=== PATIENT | female | born 1985 | race Caucasian/White ===

== ENCOUNTER → 2016-04-13 | Outpatient (CLI) | payer OTHER ==
[~2016-04-13] MED LIST: ALEV220C2 PO; DURAGESIC; PAME25CA PO; TYLE325T5 PO; percocet
[2016-04-13 20:39] LABS: BASO % 0.3 % (0.0-1.0); EOS # 0.4 K/mm3 (0.0-0.50); EOS % 4.9 % (0.0-3.0); LARGE UNSTAINED CELL # 0.1 K/mm3 (0.0-0.4); LARGE UNSTAINED CELL % 1.3 % (0.0-4.0); LYMPH # 1.5 K/mm3 (1.5-6.5); LYMPH % 19.5 % (24.0-44.0); MEAN CORPUSCULAR HEMOGLOBIN 32.1 pg (27.0-33.0); MEAN CORPUSCULAR HGB CONC 34.4 g/dl (32.0-36.5); MEAN CORPUSCULAR VOLUME 93.1 fl (80.0-96.0); MONO # 0.4 K/mm3 (0.0-0.8); MONO % 5.1 % (0.0-5.0); NEUTROPHILS # 5.4 K/mm3 (1.8-7.7); NEUTROPHILS % 68.8 % (36.0-66.0); PLATELET COUNT, AUTOMATED 220 k/mm3 (150-450); RED CELL DISTRIBUTION WIDTH 11.9 % (11.5-14.5); WHITE BLOOD COUNT 7.8 K/mm3 (4.0-10.0)
[2016-04-16 11:12] LABS: HBsAg Prenatal NEGATIVE (NEGATIVE)
[2016-04-16 12:51] LABS: CONTROL LINE INT CTR LINE PRESENT; HIV SCRN NEGATIVE (NEGATIVE); HIV SCRN1 NEGATIVE (NEGATIVE)
== END ==
LOC: M LRY 15:51
PROVIDERS: ATTEND Obstetrics & Gynecology
DX: Z34.81 Encounter for supervision of other normal pregnancy, first trimester (principal)

== ENCOUNTER → 2016-04-13 | Outpatient (REF) | payer OTHER | LOC: CANPREREF → M SFHCCLAY 14:55 | PROVIDERS: ATTEND Nurse Practitioner | DX: Z32.00 Encounter for pregnancy test, result unknown (principal) ==

== ENCOUNTER → 2016-05-28 | Outpatient (CLI) | payer OTHER ==
--- NOTE | 2016-05-29 10:11 | REP ---
OB ULTRASOUND: Real-time sonographic evaluation of the gravid uterus performed. There is a single living intrauterine gestation with an estimated gestational age of 18 weeks 3 days based on LMP with EDC 10/26/2016. Today's measurements indicate appropriate growth. BPD 44 mm 19 weeks 2 days, 75th percentile HC 168 mm 19 weeks 3 days, 82 percentile AC 136 mm 19 weeks 0 days, 63rd percentile FL 27 mm = 18 weeks 1 day, 45th percentile HC/AC ratio 1.24 within normal range. Estimated weight 254 grams, 59th percentile. Cervix closed and measures 3.5 cm in length. heart rate 139 beats per minute. SEEN/GROSSLY UNREMARKABLE Lateral ventricles Yes Posterior fossa Yes Upper lip Yes Four-chamber heart Yes LVOT Yes RVOT Yes Stomach Yes Cord insertion Yes Three vessel cord Yes Kidneys Yes Bladder Yes Spine Yes position vertex. Placenta anterior and grade 0 with no previa or abruption. Amniotic fluid within normal limits.
== END ==
LOC: M WHC 14:58
PROVIDERS: ATTEND Obstetrics & Gynecology
DX: Z34.82 Encounter for supervision of other normal pregnancy, second trimester (principal)

== ENCOUNTER → 2016-07-29 | Outpatient (CLI) | payer OTHER, MEDICAID ==
[2016-07-29 18:44] LABS: MEAN CORPUSCULAR HEMOGLOBIN 32.6 pg (27.0-33.0); MEAN CORPUSCULAR HGB CONC 33.1 g/dl (32.0-36.5); MEAN CORPUSCULAR VOLUME 98.3 fl (80.0-96.0); PLATELET COUNT, AUTOMATED 213 k/mm3 (150-450); RED CELL DISTRIBUTION WIDTH 13.2 % (11.5-14.5); WHITE BLOOD COUNT 13.5 K/mm3 (4.0-10.0)
[2016-07-29 21:01] LABS: BANDS 2 % (< 11); EOSINOPHILS 1 % (0-5)
== END ==
LOC: M WUC 14:28
PROVIDERS: ATTEND Advanced Practice Midwife
DX: Z34.83 Encounter for supervision of other normal pregnancy, third trimester (principal)
CPT/HCPCS: 36415; 82950; 85025; 86850; 86900; 86901; J2790

== ENCOUNTER → 2016-10-05 | Outpatient (REF) | payer OTHER ==
[~2016-10-05] MED LIST changes: +PRENTAB9 PO
== END ==
LOC: M LAB REF 17:24
PROVIDERS: ATTEND Advanced Practice Midwife
DX: Z34.83 Encounter for supervision of other normal pregnancy, third trimester (principal)

== ENCOUNTER 2016-10-09 05:44 | Inpatient (IN) | payer OTHER ==
[2016-10-09] VITALS (13 sets, daily range): BP systolic 104–135; BP diastolic 55–94
[~2016-10-09] VITALS: Ht 177.8 cm; Wt 85.0 kg
[~2016-10-09 05:44] MED LIST changes: -PRENTAB9 PO
[2016-10-09] MEDS ORDERED: LR 1,000 ML IV SCH (06:22)
[2016-10-09] MEDS ORDERED: OXYTOCIN DRIP 30 UNITS in APPROPRIATE DILUENT 1 EA IV SCH ×2 (06:30→23:06)
[2016-10-09 07:04] LABS: MEAN CORPUSCULAR HEMOGLOBIN 33.8 pg (27.0-33.0); MEAN CORPUSCULAR HGB CONC 35.5 g/dl (32.0-36.5); MEAN CORPUSCULAR VOLUME 95.3 fl (80.0-96.0); RED CELL DISTRIBUTION WIDTH 12.8 % (11.5-14.5); WHITE BLOOD COUNT 10.5 K/mm3 (4.0-10.0)
[2016-10-09] MEDS ORDERED: PRENTAB9 PO (07:10)
--- NOTE | 2016-10-09 10:36 | HPE ---
DATE OF ADMISSION: 10/09/2016 HISTORY: 31-year-old, 1, para 0 female at 37 and 4/7 weeks gestation by last menstrual period and consistent with 8 week ultrasound. Estimated date of confinement (EDC) of 10/26/2016, presents with spontaneous loss of fluid per vagina at 2:20 a.m. on the morning of admission. She continued to leak throughout the morning. She has minimal contractions. She soaked her bed sheets with fluid. No vaginal bleeding. COURSE: The patient initiated care at 12 weeks gestation on 04/18/2016. Her first trimester blood pressure was 122/78, weight 164 pounds. course was unremarkable. MEDICAL HISTORY: 1. B cell lymphoma in 2015, treated with chemotherapy. 2. Asthma. SURGICAL HISTORY: 1. Thoracotomy in 2014 with lung resection. 2. Port placement for chemotherapy. ALLERGIES: PENICILLIN CIPRO SULFA SOCIAL HISTORY: The father of the baby is involved with the patient. Denies cigarettes, alcohol or drug use. She is in remission from her lymphoma. Lives in [place]. FAMILY HISTORY: Noncontributory. PHYSICAL EXAMINATION: VITAL SIGNS: Blood pressure 124/74, pulse 84. She is in no apparent distress. HEAD/NECK EXAM: Normal. LUNGS: Clear. HEART: Regular rate and rhythm. ABDOMEN: Nontender. Gravid. Strip is Category 1. Contractions are irregular. Sterile vaginal examination: Grossly ruptured, clear fluid noted. 1 cm, 80% effaced, -2 station, posterior, vertex. EXTREMITIES : Nontender. LABORATORY DATA: Blood type is O negative, Rubella immune, RPR nonreactive. Hepatitis B and C negative. HIV negative. Diabetes screen 101. Group B streptococcus (GBS) negative. ASSESSMENT: 31-year-old, 1, para 0 at 37 and 4/7 weeks gestation who presents with premature rupture of membranes. The patient was admitted on 10/09/2016. Plan augmentation of labor if contractions do not ensue in a reasonable time.
[2016-10-09] MEDS ORDERED: OXYTOCIN INJ 10 UNITS/ML VIAL (J2590) As Ordered ONE (14:49)
[2016-10-09] MEDS ORDERED: FENTANYL 2MCG/ML ROPIVACAINE 0.2% IN 0.9% NACL 200ML IVBAG As Ordered ONE (14:49)
[2016-10-09] MEDS ORDERED: REFRIGERATOR IV KEYS XX PRN (16:30)
[2016-10-09] MEDS ORDERED: NALOXONE INJ 0.4 MG/1 ML VIAL (J2310) IV PRN (16:30)
[2016-10-09] MEDS ORDERED: diphenhydrAMINE INJ 50MG/ML VIAL (J1200) IV PRN (16:30)
[2016-10-09] MEDS ORDERED: LACTATED RINGER'S 1000 ML IV PRN (16:30)
[2016-10-09] MEDS ORDERED: EPIDURAL COMMENT XX SCH (16:30)
[2016-10-09] MEDS ORDERED: ONDANSETRON 4MG/2ML VIAL (J2405) IV PRN (16:30)
[2016-10-09] MEDS ORDERED: ePHEDrine SULFATE 25 MG/5 ML(5MG/ML) SYRINGE IV PRN ×2 (16:30→19:30)
[2016-10-09] MEDS ORDERED: FENTANYL/ROPIVACAINE/NACL BAG 200 ML EPIDURAL SCH (16:30)
[2016-10-09] MEDS ORDERED: EPIDURAL/PCA KEYS XX PRN (16:30)
[2016-10-09] MEDS ORDERED: DOCUSATE SODIUM 100 MG CAP PO PRN (23:15)
[2016-10-09] MEDS ORDERED: DIBUCAINE 1% OINTMENT 30GM TOP PRN (23:15)
[2016-10-09] MEDS ORDERED: METHYLERGONOVINE MALEATE 0.2 MG TAB PO PRN (23:15)
[2016-10-09] MEDS ORDERED: ACETAMINOPHEN 500 MG TAB PO PRN (23:15)
[2016-10-09] MEDS ORDERED: LIDOCAINE 1% MDV INJ 50 ML VIAL INFIL ONE (23:15)
[2016-10-09] MEDS ORDERED: MEASLES,MUMPS,RUBELLA VACCINE INJ (MMR-II) (90707) SC SCH (23:15)
[2016-10-09] MEDS ORDERED: RHOGAM 300 MCG (1500 IU) INJ (J2790) IM SCH (23:15)
[2016-10-09 23:25] LABS: CORD GAS ABE V -7.5; CORD GAS HCO3 V 16.9 MEQ/L; CORD GAS O2 SAT V 65.8 %; CORD GAS PCO2 V 31.8 mmHg; CORD GAS PH V 7.343 UNITS; CORD GAS PO2 V 29.3 mmHg; CORD GAS SBC V 17.8 MEQ/L; CORD GAS TCO2 V 17.9 MEQ/L
[2016-10-09 23:26] LABS: CORD GAS ABE A -6.9; CORD GAS HCO3 A 18.9 MEQ/L; CORD GAS O2 SAT A 48.3 %; CORD GAS PCO2 A 39.2 mmHg; CORD GAS PH A 7.302 UNITS; CORD GAS PO2 A 21.4 mmHg; CORD GAS SBC A 17.8 MEQ/L; CORD GAS TCO2 A 20.1 MEQ/L
[2016-10-09] MEDS: IBUPROFEN 800 MG TAB PO PRN (23:34)
[2016-10-10] VITALS (7 sets, daily range): BP systolic 101–124; BP diastolic 55–79
--- NOTE | 2016-10-10 00:22 | DN ---
DATE: 10/09/2016 Velma is a 31-year-old 1, para 1-0-0-1 now who was admitted to labor and delivery with premature rupture of membranes. Intravenous (IV) Pitocin was started and labor did ensue. She did utilize an epidural for her labor coping. She progressed to full dilation at 2121 hours. She pushed to a normal spontaneous vaginal delivery of a live female in occiput anterior (OA) position with restitution to right occiput transverse (ROT) position at 2240 hours. There was no nuchal cord. Shoulders delivered spontaneously and the corpus immediately followed. The was placed on the maternal abdomen, crying and active. Her mouth and nares were bulb suctioned. The cord was clamped times two and cut by the father of the baby. A spontaneous expulsion of an intact placenta with three-vessel cord by Dorado mechanism was at 2244 hours. Estimated blood loss 300 mL. Uterine hemostasis was achieved with IV Pitocin rapid infusion and uterine fundal massage. Perineum and vagina were inspected, noted to have bilateral labial lacerations. The lacerations were infiltrated with 1% lidocaine and repaired with #3-0 Rapide in the usual fashion. [place] male weighed 7 pounds, 3174 grams, scores 9 and 9. Mom plans to breastfeed her son, and the family have named him Shira Bernard. At the close of delivery, lap counts, instrument counts, needle counts were correct and verified.
[2016-10-10] MEDS: PRENATAL VITAMINS CHEWABLE TABLET PO SCH (09:00)
[2016-10-10] MEDS: IBUPROFEN 800 MG TAB PO PRN ×2 (09:01→18:32)
[2016-10-11 06:21] VITALS: BP 125/66
[2016-10-11] MEDS: PRENATAL VITAMINS CHEWABLE TABLET PO SCH (09:17)
[2016-10-11] MEDS: IBUPROFEN 800 MG TAB PO PRN (09:18)
== END 2016-10-11 17:20 | disposition home or self-care (01) | DRG 775 ==
LOC: M LDO 05:44 → M LDI 06:20 → M OBS 10-10 00:46
PROVIDERS: ADMIT Specialist; ATTEND Advanced Practice Midwife
PROC: 10E0XZZ Delivery of Products of Conception, External Approach (ICD-10-PCS; principal; 2016-10-09)
PROC: 0HQ9XZZ Repair Perineum Skin, External Approach (ICD-10-PCS; 2016-10-09)
DX: O42.02 Full-term premature rupture of membranes, onset of labor within 24 hours of rupture (principal); Z3A.37 37 weeks gestation of pregnancy; O70.0 First degree perineal laceration during delivery; Z37.0 Single live birth; O99.52 Diseases of the respiratory system complicating childbirth; J45.909 Unspecified asthma, uncomplicated

== ENCOUNTER → 2017-06-21 | Outpatient (REF) | payer OTHER ==
[2017-06-21 11:57] LABS: BASO % 0.4 % (0.0-1.0); EOS # 0.1 10^3/uL (0.0-0.50); EOS % 2.7 % (0.0-3.0); HEMATOCRIT 43.3 % (36.0-47.0); HEMOGLOBIN 14.6 g/dl (12.0-15.5); LYMPH # 2.1 10^3/uL (1.5-4.5); LYMPH % 40.8 % (24.0-44.0); MEAN CORPUSCULAR HEMOGLOBIN 30.9 pg (27.0-33.0); MEAN CORPUSCULAR HGB CONC 33.7 g/dl (32.0-36.5); MEAN CORPUSCULAR VOLUME 91.5 fl (80.0-96.0); MONO # 0.4 10^3/uL (0.0-0.8); MONO % 7.6 % (0.0-5.0); NEUTROPHILS # 2.5 10^3/uL (1.8-7.7); NEUTROPHILS % 48.5 % (36.0-66.0); PLATELET COUNT, AUTOMATED 246 10^3/uL (150-450); RED BLOOD COUNT 4.73 10^6/uL (4.00-5.40); WHITE BLOOD COUNT 5.1 10^3/uL (4.0-10.0)
[2017-06-21 12:21] LABS: ALBUMIN 3.3 GM/DL (3.2-5.2); ALBUMIN/GLOBULIN RATIO 0.89 (1.00-1.93); ALKALINE PHOSPHATASE 67 U/L (45-117); ALT/SGPT 30 U/L (12-78); ANION GAP 7 MEQ/L (8-16); AST/SGOT 21 U/L (7-37); BILIRUBIN,TOTAL 0.3 MG/DL (0.2-1.0); BLOOD UREA NITROGEN 20 MG/DL (7-18); CALCIUM LEVEL 8.8 MG/DL (8.5-10.1); CARBON DIOXIDE LEVEL 22 MEQ/L (21-32); CHLORIDE LEVEL 112 MEQ/L (98-107); CREATININE FOR GFR 0.95 MG/DL (0.55-1.30); GLOMERULAR FILTRATION RATE > 60.0 (>60); GLUCOSE, FASTING 73 MG/DL (70-100); LDH LACTATE DEHYDROGENASE 137 U/L (84-246); POTASSIUM SERUM 4.5 MEQ/L (3.5-5.1); SODIUM LEVEL 141 MEQ/L (136-145)
== END ==
LOC: M LABDRAWC 11:25
DX: C85.90 Non-Hodgkin lymphoma, unspecified, unspecified site (principal)

== ENCOUNTER → 2017-08-05 | Outpatient (CLI) | payer OTHER | LOC: M CLY 13:51 | DX: M25.562 Pain in left knee (principal) | CPT/HCPCS: 73564 ==

== ENCOUNTER → 2017-11-11 | Outpatient (REF) | payer OTHER | LOC: M SFHCCLAY 11-12 11:24 | DX: K52.9 Noninfective gastroenteritis and colitis, unspecified (principal) | CPT/HCPCS: 87507 ==

== ENCOUNTER → 2017-11-18 | Outpatient (REF) | payer OTHER ==
[2017-11-20 14:18] LABS: HPV HYBRID CAPTURE II Negative (Negative)
== END ==
LOC: M LAB REF 17:23
DX: Z12.4 Encounter for screening for malignant neoplasm of cervix (principal)

== ENCOUNTER 2017-12-19 12:55 | Day surgery (SDC) | payer OTHER ==
[2017-12-19] MEDS ORDERED: dexameTHASONE 4 MG/ML 1ML VIAL (J1100) IV (13:00)
[2017-12-19] MEDS ORDERED: LIDOCAINE 2% INJ 100 MG/5 ML SDV (FOR ANES.) As Ordered (13:31)
[2017-12-19] MEDS ORDERED: ROCURONIUM BROMIDE 50 MG/5 ML VIAL As Ordered (13:31)
[2017-12-19] MEDS ORDERED: PROPOFOL 200 MG/20 ML VIAL As Ordered (13:31)
[2017-12-19] MEDS ORDERED: fentaNYL 100 MCG/2 ML INJECTION (J3010) As Ordered ×2 (13:31→14:26)
[2017-12-19] MEDS ORDERED: MIDAZOLAM INJ 2 MG/2 ML VIAL (J2250) As Ordered (13:31)
[2017-12-19] MEDS ORDERED: METHYLENE BLUE 0.5% (5MG/ML) 10 ML AMP (PROVAYBLUE)(Q9968 PER 1MG) As Ordered (13:32)
[2017-12-19] MEDS ORDERED: OXYMETAZOLINE NASAL SPRAY (AFRIN) As Ordered (13:32)
[2017-12-19 14:08] LABS: CONTROL LINE UCG INT CTR LINE PRESENT; URINE PREG TEST NEGATIVE (NEGATIVE)
[2017-12-19] MEDS: LIDOCAINE W/EPINEPHRINE 1% 20ML VIAL As Ordered (14:33)
[2017-12-19] MEDS ORDERED: GLYCOPYRROLATE INJ 0.2 MG/ML 2 ML VIAL As Ordered (14:34)
[2017-12-19] MEDS ORDERED: METOCLOPRAMIDE INJ 10MG/2ML VIAL (J2765) As Ordered (14:34)
[2017-12-19] MEDS ORDERED: KETOROLAC 60 MG/2 ML VIAL (J1885) As Ordered (14:34)
[2017-12-19] MEDS ORDERED: dexameTHASONE 4 MG/ML 1ML VIAL (J1100) As Ordered ×2 (14:34)
[2017-12-19] MEDS ORDERED: NEOSTIGMINE 10 MG/10 ML VIAL (J2710) As Ordered (14:34)
[2017-12-19] MEDS ORDERED: fentaNYL 100 MCG/2 ML INJECTION (J3010) IV (15:15)
[2017-12-19] MEDS ORDERED: ONDANSETRON 4MG/2ML VIAL (J2405) IV (15:15)
[2017-12-19] MEDS ORDERED: LR 1,000 ML IV ×2 (15:15)
== END 2017-12-19 15:56 | disposition home or self-care (01) ==
LOC: M SDC 12:55
DX: J36 Peritonsillar abscess (principal); J45.909 Unspecified asthma, uncomplicated; Z79.51 Long term (current) use of inhaled steroids
CPT/HCPCS: 42700

== ENCOUNTER → 2018-01-23 | Outpatient (CLI) | payer OTHER ==
[~2018-01-23] MED LIST changes: -ALEV220C2 PO; -DURAGESIC; +ISOVUE-370 76% 100ML VIAL (Q9967) As Ordered; -PAME25CA PO; -TYLE325T5 PO; -percocet
== END ==
LOC: M RAD 16:13
DX: Z85.72 Personal history of non-Hodgkin lymphomas (principal)

== ENCOUNTER → 2018-09-11 | Outpatient (CLI) | payer OTHER ==
[~2018-09-11] MED LIST changes: +ALEV220C2 PO; +DURAGESIC; +FLUO20CA19 PO; -ISOVUE-370 76% 100ML VIAL (Q9967) As Ordered; +METHACHOLINE KIT (J7674) INH ONE; +MONO0.25 PO; +PAME25CA PO; +PRENTAB9 PO; +QVAR80AE8 IN; +TYLE325T5 PO; +VENTAER IN; +percocet
--- NOTE | 2018-09-11 08:51 | PFTRPT ---
Site: [facility], [address] [place], [address] ID: [id number] Name: MAYA GRACE Visit Date: 09/11/2018 Second ID: [id number] Referring Doctor: Martha HERRING, Alhaji Schaffer Reviewing Doctor: Santino Ivey MD Ostomy Nurse: Yvette ROJAS RRT Age: 33 : 1985 Sex: Female Race: Height: 69.00 Inches Weight: 160.00 Lbs BSA: 1.88 Order IDs: [id number] Requested Test(s): <RESP-PFT.METH CHAL> Diagnosis: R06.00 puffs of albuterol for post bronchodilator. Review Status: Not Reviewed Pre-Bronch Post-Bronch Pred Actual %Pred Actual %Chng SPIROMETRY FVC (L) 4.40 3.92 89 3.97 1 FEV1 (L) 3.66 3.08 84 2.95 -4 FEV1/FVC (%) 84 79 93 74 -5 FEF 25% (L/sec) 6.18 5.05 81 5.70 12 FEF 50% (L/sec) 4.45 2.89 65 2.68 -7 FEF 75% (L/sec) 1.86 1.35 72 1.04 -23 FEF 25-75% (L/sec) 3.71 2.75 74 2.34 -15 FEF Max (L/sec) 7.81 5.93 75 6.67 12 FIVC (L) 3.86 3.76 -2 FIF 50% (L/sec) 4.16 4.22 101 3.97 -5 FIF Max (L/sec) 4.65 4.34 -6 Expiratory Time (sec) 7.03 6.53 -7 Back Extrap Vol (L) 0.09 0.10 12 Time To FEFmax (sec) 0.086 0.086
== END ==
LOC: M CARPUL 07:40
PROVIDERS: ATTEND Internal Medicine Pulmonary Disease
DX: R94.2 Abnormal results of pulmonary function studies (principal); R06.00 Dyspnea, unspecified
CPT/HCPCS: 94070; J7674

== ENCOUNTER → 2018-12-26 | Outpatient (REF) | payer OTHER ==
[~2018-12-26] MED LIST changes: -METHACHOLINE KIT (J7674) INH ONE
[2018-12-31 08:20] LABS: HPV HYBRID CAPTURE II Negative (Negative)
== END ==
LOC: M LAB REF 16:46
PROVIDERS: ATTEND Advanced Practice Midwife
DX: R87.612 Low grade squamous intraepithelial lesion on cytologic smear of cervix (LGSIL) (principal)
CPT/HCPCS: 87624; G0123

== ENCOUNTER → 2019-02-10 | Outpatient (REF) | payer OTHER | LOC: M LAB REF 17:37 | PROVIDERS: ATTEND Obstetrics & Gynecology | DX: N87.1 Moderate cervical dysplasia (principal) ==

== ENCOUNTER → 2019-04-30 | Outpatient (REF) | payer OTHER ==
[~2019-04-30] MED LIST changes: -FLUO20CA19 PO; +FLUO20CA22 PO
== END ==
LOC: M SFHCWAGY 13:07
PROVIDERS: ATTEND Obstetrics & Gynecology
DX: N87.1 Moderate cervical dysplasia (principal)

== ENCOUNTER 2019-05-19 09:45 | Observation (INO) | payer OTHER ==
[~2019-05-19] VITALS: Ht 177.8 cm; Wt 76.6 kg
[~2019-05-19 09:45] MED LIST changes: -VENTAER IN; +VENTAER INH
[2019-05-19] MEDS ORDERED: QVAR80AE8 INH (09:56)
[2019-05-19] MEDS ORDERED: IBUP200T45 PO (09:56)
--- NOTE | 2019-05-19 11:26 | REP ---
PA and lateral chest: Comparison is the chest CT dated 01/23/2018. There is a large mass-like density inferolaterally on the left as an interval change. The right lung is clear. There are surgical clips in the left mediastinal area. There is mild thoracic scoliosis convex right. The lexi, mediastinum, skeletal structures otherwise unremarkable. Impression: Large mass-like density inferolaterally in the left lung. Electronically Signed by Marco Antonio Thacker MD 05/19/2019 11:17 A
[2019-05-19] MEDS ORDERED: NS 1,000 ML IV ONE (11:45)
[2019-05-19] MEDS ORDERED: ISOVUE-370 76% 100ML VIAL (Q9967) As Ordered ONE (12:02)
[2019-05-19 12:08] LABS: HEMATOCRIT 43.1 % (36.0-47.0); HEMOGLOBIN 14.2 g/dl (12.0-15.5); MEAN CORPUSCULAR HEMOGLOBIN 30.1 pg (27.0-33.0); MEAN CORPUSCULAR HGB CONC 32.9 g/dl (32.0-36.5); MEAN CORPUSCULAR VOLUME 91.5 fl (80.0-96.0); PLATELET COUNT, AUTOMATED 197 10^3/uL (150-450); RED BLOOD COUNT 4.71 10^6/uL (4.00-5.40); WHITE BLOOD COUNT 8.1 10^3/uL (4.0-10.0)
[2019-05-19 12:34] LABS: ATYPICAL LYMPH 10 % (0-5); EOSINOPHILS 3 % (0-3); LYMPHOCYTES 21 % (16-44); MONOCYTES 3 % (0-5); NEUTROPHILS 58 % (28-66); PLATELET ESTIMATE NORMAL (NORMAL)
--- NOTE | 2019-05-19 12:43 | REP ---
CT of the chest with IV contrast: Comparisons are the PA and lateral plain film study performed earlier today and the comparison chest CT dated 01/23/2018. There is a 5.8 cm soft tissue mass-like density in the anterior basilar segment of the left lower lobe abutting the major fissure and lateral pleura, similar to that on the comparison plain film study earlier today. This is nonspecific and could represent a consolidated lung infiltrate or a true chest mass. There is air space disease in the lung at the periphery of this mass . There is left hilar lymph node enlargement up to at 10 mm in short axis. There is no right hilar lymph node enlargement. There is no mediastinal lymph node enlargement. There is no axillary lymph node enlargement. There are no emboli in the pulmonary trunk or central pulmonary arteries. There are no emboli in the pulmonary lobe or segment branches. The thoracic aorta is unremarkable. Cardiac size is normal. There is no pericardial effusion. The visualized upper abdominal contents are unremarkable. This mass was not present on the comparison CT. There was no hilar lymph node enlargement on the comparison CT. Impression: There is a 5.3 cm mass-like density in the left lower lobe as described. There is left hilar lymph node enlargement. This could represent a consolidated left lower lobe infiltrate or a true left lung mass. I would recommend follow-up to complete resolution. If there is no resolution within a reasonable time frame, consider PET scan. Electronically Signed by Marco Antonio Thacker MD 05/19/2019 12:34 P
[2019-05-19] MEDS ORDERED: AZITHROMYCIN INJ 500 MG, VIAL MATE ADAPTER 1 EACH in D5W 250 ML IV ONE (14:15)
[2019-05-19] MEDS ORDERED: MORPHINE 4 MG/ML 1ML VIAL/SYRINGE (J2270) IV ONE (14:15)
[2019-05-19] MEDS ORDERED: cefTRIAXone SOD 1 GM in D5W MINI-BAG PLUS 50 ML IV ONE ×2 (14:15→14:45)
[2019-05-19 14:45] LABS: INFLUENZA A AMPLIFICATION NEGATIVE (NEGATIVE); INFLUENZA B AMPLIFICATION NEGATIVE (NEGATIVE)
[2019-05-19] MEDS ORDERED: PREVTAB2 PO (14:55)
[2019-05-19] MEDS ORDERED: OSEL75CA2 PO (14:55)
[2019-05-19] MEDS ORDERED: ACETAMINOPHEN TAB 650MG DOSE (2X325MG) PO ONE (15:00)
--- NOTE | 2019-05-19 15:10 | HPEPDOC ---
[facility] Medical History & Physical Date of Admission May 19, 2019 Date of Service: May 19, 2019 History and Physical Chief complaints Right-sided chest pain History of present illness This is a 34-year-old female with past medical history of large beta cell lymphoma in 2014, treated with chemotherapy information was having flulike symptoms since Saturday when her son also got diagnosed with influenza A. She went to the PCP on Saturday and was prescribed Tamiflu and has been taking Tamiflu for total of 3 doses so far. She continued to have difficulty in tapering a deep inspiration and eventually started with this left-sided chest pain, mostly on inspiration. She stated that it bothered hurt so much that she decided to come to the hospital. She also states that she has been feeling some fevers and chills but did not monitor the temperature. She also has been complaining of mild cough without any sputum production. Denies any headaches. He denies any loss of consciousness. Denies any blood in the sputum. Denies any abdominal discomfort, any urinary symptoms or diarrhea. MEDICAL HISTORY: 1. B cell lymphoma in 2015, treated with chemotherapy. 2. Asthma. SURGICAL HISTORY: 1. Thoracotomy in 2015 with lung resection. 2. Port placement for chemotherapy. ALLERGIES: PENICILLIN CIPRO SULFA SOCIAL HISTORY: Denies smoking, alcohol or drug use. FAMILY HISTORY: Noncontributory. PHYSICAL EXAMINATION: General: The patient is awake, alert, oriented x3, sitting up in the bed in no apparent distress right now, but she already got morphine. Head and Neck Exam: Extraocular muscles intact. Pupils equally round and reactive to light. Mucous membranes are moist. Neck is supple. There is no jugular venous distention (JVD). Cardiovascular: S1 and S2, regular rate. Trace edema of the bilateral lower extremities. Respiratory: Mild. Rales on the mid left lung field , mildly decreased breath sounds at the left side. Poor inspiratory effort Abdomen: Soft. Positive bowel sounds. Nontender. No organomegaly. Genitourinary: Deferred Musculoskeletal: No Clubbing of the fingernails, no cyanosis was noted. Central Nervous System ([employer]): No focal deficit. Power is 5/5 in all extremities. Lymphatics: No cervical, axillary or inguinal lymphadenopathy Labs reviewed Radiology reviewed: CAT scan showing possible Mass versus consolidation along with the mid left lung field Assessment and plan This is a 34-year-old female presents to the hospital for left-sided chest pain which is pleuritic. Currently admitted for superimposed pneumonia with possible influenza and rule out lymphoma 1. Left lung consolidation. Most likely it is secondary to superimposed adrienne terial pneumonia or underlying influenza infection. Her son was recently diagnosed with influenza A and she started the symptoms the next day. She'll be started on IV Rocephin and azithromycin. MRSA screen will be done. Atypical workup will be initiated. Sputum culture will be sent. Pro-calcitonin will be ordered as well. The patient will require antibiotics for 5-7 days to complete a treatment for pneumonia depending upon the cultures and then would require repeat radiology within the next 2-4 weeks to see the resolution. If there is no resolution even after 2-4 weeks, then the patient probably will require a biopsy to see if there is any reactivation of lymphoma. In my opinion, the patient has no lymphadenopathy, no weight loss. No night sweats or any constitutional symptoms pointing towards reactivation of lymphoma at this time. 2. Left-sided chest pain. It is pleuritic in nature and will be kept on morphine 1 mg every 6 hours when necessary. Will add Motrin 200 twice a day when ne cessary as an infant the inflammatory. And the patient will be started on Protonix to prevent any gastric ulcers. 3. History of diffuse large B-cell lymphoma. Completed chemotherapy for 6 cycles in 2015. States that she goes to her name on every 6 months to get a peripheral blood smear and her CBC be done and she has been in complete remission. The ER attending. Did speak with oncologist and as per them. They will see her in the outpatient clinic once she is discharged from here. I will also order peripheral smear. 4. Asthma. We will continue dual nebs for now and reassess the need of m edication on discharge. DVT prophylaxis with subcutaneous heparin Anticipate discharge within the next 24-48 hours. Despite length of stay is less than 2 midnights. Vital Signs Vital Signs Date Time Temp Pulse Resp B/P (MAP) Pulse Ox O2 Delivery O2 Flow Rate FiO2 05/19/19 14:34 101.6 104 16 140/68 (92) 100 Room Air Laboratory Data Labs 24H Laboratory Tests 2 05/19/19 11:54: Neutrophils (%) (Auto) , Nucleated Red Blood Cells % (auto) 0.0, Neutrophils 58, Band Neutrophils 5, Lymphocytes (Manual) 21, Monocytes (Manual) 3, Eosinophils (Manual) 3, Atypical Lymphocytes 10H, Platelet Estimate NORMAL 05/19/19 11:58: POC Glucose (Misc Panel) 84, POC Sodium (Misc Panel) 137, POC Potassium (Misc Panel) 4.3, POC Chloride (Misc Panel) 100, POC Total CO2 (Misc Panel) 27.0, POC Blood Urea Nitrogen (Misc Panel 8, POC Ionized Calcium (Misc Panel) 4.6, POC Creatinine (Misc Panel) 0.7, POC Hematocrit (Misc Panel) 44.0 05/19/19 14:02: Influenza Type A (RT-PCR) NEGATIVE, Influenza Type B (RT-PCR) NEGATIVE CBC/BMP Laboratory Tests 05/19/19 11:54 Microbiology Microbiology 05/19/19 Blood Culture, Received Pending 05/19/19 Blood Culture, Received Pending Home Medications Scheduled Beclomethasone Dipropionate (Qvar Redihaler) 80 Mcg/Act Hfa.aeroba, 1 PUFF INH DAILY Fluoxetine Hcl (Fluoxetine HCl) 20 Mg Cap, 20 MG PO DAILY Norgestimate-Ethinyl Estradiol (Previfem Tablet) 1 Each Tablet, 1 TAB PO DAILY Oseltamivir Phosphate (Oseltamivir Phosphate) 75 Mg Capsule, 75 MG PO BID STARTED ON 05/18/19 FOR 5 DAYS Scheduled PRN Albuterol Sulfate (Ventolin Hfa) 108 Mcg/Act Aer, 2 PUFFS INH QID PRN for SHORTNESS OF BREATH Ibuprofen (Ibu-200) 200 Mg Tablet, 400 MG PO QID PRN for PAIN / FEVER Allergies Coded Allergies: Penicillins (Verified Allergy, Intermediate, hives, 05/19/19) Sulfa (Sulfonamide Antibiotics) (Verified Allergy, Intermediate, hives, 05/19/19) ciprofloxacin (Verified Allergy, Intermediate, hives, 05/19/19) A-FIB/CHADSVASC A-FIB History Current/History of A-Fib/PAF?: No Current PO Anticoag Therapy: SHAVON Sidhu MD May 19, 2019 15:10
[2019-05-19] MEDS ORDERED: MOM 30ML SUSPENSION UDC PO PRN (15:15)
[2019-05-19] MEDS ORDERED: MAALOX 30 ML SUSP *UDC PO PRN (15:15)
[2019-05-19] MEDS ORDERED: ACETAMINOPHEN TAB 650MG DOSE (2X325MG) PO PRN (15:15)
[2019-05-19] MEDS ORDERED: MORPHINE 2 MG/ML 1ML VIAL (J2270) IV PRN (15:15)
[2019-05-19] MEDS ORDERED: IBUPROFEN 200 MG TAB PO PRN (15:30)
[2019-05-19] MEDS ORDERED: PANTOPRAZOLE 20 MG TAB PO ONE (16:00)
[2019-05-19 16:30] VITALS: BP 117/60
[2019-05-19] MEDS: IPRATROPIUM 0.5MG/ALBUTEROL 2.5MG INH SOL UD 3ML (DUONEB)(J7620) NEB SCH (16:32)
[2019-05-19] MEDS: IBUPROFEN 600 MG TAB PO PRN (19:33)
[2019-05-19 20:00] VITALS: BP 120/60
[2019-05-19] MEDS: MORPHINE 2 MG/ML 1ML VIAL (J2270) IV PRN (20:31)
[2019-05-19] MEDS: HEPARIN SOD (PORCINE) 5000 UNITS/ML VIAL (J1644 PER 1000UNITS) SC SCH (23:02)
[2019-05-19] MEDS: OSELTAMIVIR PHOSPHATE 75 MG CAP (TAMIFLU) PO SCH (23:02)
[2019-05-19] MEDS: DOCUSATE SODIUM 100 MG CAP PO SCH (23:02)
[2019-05-20] VITALS: BP 113/54
[2019-05-20] MEDS: IBUPROFEN 600 MG TAB PO PRN (03:28)
[2019-05-20] MEDS: MORPHINE 2 MG/ML 1ML VIAL (J2270) IV PRN ×3 (05:08→12:11)
[2019-05-20] MEDS: HEPARIN SOD (PORCINE) 5000 UNITS/ML VIAL (J1644 PER 1000UNITS) SC SCH ×3 (05:08→21:56)
[2019-05-20 06:59] LABS: HEMATOCRIT 38.4 % (36.0-47.0); HEMOGLOBIN 12.8 g/dl (12.0-15.5); MEAN CORPUSCULAR HGB CONC 33.3 g/dl (32.0-36.5); MEAN CORPUSCULAR VOLUME 89.9 fl (80.0-96.0); PLATELET COUNT, AUTOMATED 195 10^3/uL (150-450); RED BLOOD COUNT 4.27 10^6/uL (4.00-5.40); WHITE BLOOD COUNT 7.5 10^3/uL (4.0-10.0)
[2019-05-20 07:24] LABS: ALBUMIN 2.6 GM/DL (3.2-5.2); ALT/SGPT 19 U/L (12-78); BILIRUBIN,TOTAL 0.3 MG/DL (0.2-1.0); BLOOD UREA NITROGEN 9 MG/DL (7-18); CALCIUM LEVEL 8.4 MG/DL (8.5-10.1); CARBON DIOXIDE LEVEL 26 MEQ/L (21-32); CHLORIDE LEVEL 108 MEQ/L (98-107); CREATININE FOR GFR 0.67 MG/DL (0.55-1.30); GLOMERULAR FILTRATION RATE > 60.0 (>60); GLUCOSE, FASTING 86 MG/DL (70-100); POTASSIUM SERUM 3.9 MEQ/L (3.5-5.1); SODIUM LEVEL 140 MEQ/L (136-145); TOTAL PROTEIN 7.2 GM/DL (6.4-8.2)
[2019-05-20] MEDS: IPRATROPIUM 0.5MG/ALBUTEROL 2.5MG INH SOL UD 3ML (DUONEB)(J7620) NEB SCH ×4 (07:59→20:00)
[2019-05-20 08:00] VITALS: BP 108/59
[2019-05-20] MEDS: DOCUSATE SODIUM 100 MG CAP PO SCH ×2 (08:06→21:57)
[2019-05-20] MEDS: OSELTAMIVIR PHOSPHATE 75 MG CAP (TAMIFLU) PO SCH ×2 (08:06→21:57)
--- NOTE | 2019-05-20 10:02 | IPNPDOC ---
Subjective Date Seen The patient was seen on 05/20/19. Subjective Chief Complaint/HPI Still with Left lateral pleuritic CP with deep breaths, but no cough or significant dyspnea. No f/c Constitutional: Denies: Chills, Fever, Night Sweats Pulmonary: Reports: Pleuritic Chest Pain; Denies: Dyspnea, Cough Cardiovascular: Denies: Chest Pain, Palpitations, Orthopnea Gastrointestinal: Denies: Nausea, Vomiting, Abdominal Pain, Diarrhea, Constip ation Objective Physical Examination General Exam: Positive: Alert, No Acute Distress Chest Exam: Positive: Diminished (decreased BS left base); Negative: Rales, Rhonchi, Wheezing Heart Exam: Positive: Rate Normal, Regular Rhythm Abdomen Exam: Positive: Normal bowel sounds, Soft; Negative: Tenderness Extremity Exam: Negative: Edema Assessment /Plan Problems (1) Pneumonia Status: Acute Problem Text: CT Angio on admission: There is a 5.3 cm mass-like density in the left lower lobe as described. There is left hilar lymph node enlargement. This could represent a consolidated left lower lobe infiltrate or a true left lung mass. I would recommend follow-up to complete resolution. If there is no resolution within a reasonable time frame, consider PET scan. Cont Morphine as needed for pleuritic pain - Change Advil to Toradol prn and encourage OOB and IS Cont Rocephin/Zithromax B/C pending CBCD showed atypical lymphs - peripheral smear: Hx of mediastinal B-cell lymphoma in 2015. Atypical lymphocytes are noted, most likely reactive in nature. If findings persist on repeat CBC diff in a couple weeks, in view of Hx of lymphoma, flow cytometry of peripheral blood can be performed to rule out a lymphoproliferative process. Will need f/u imaging and f/u peripheral smear as outpatient to assure this is not related to a recurrence of her Lymphoma (2) History of non-Hodgkin's lymphoma Status: Acute Problem Text: see above Plan/VTE VTE Prophylaxis Ordered?: Yes (SQ heparin) VS, I&O, 24H, Fishbone Vital Signs/I&O Vital Signs Date Time Temp Pulse Resp B/P (MAP) Pulse Ox O2 Delivery O2 Flow Rate FiO2 05/20/19 08:23 16 05/20/19 08:00 98.5 88 108/59 (75) 97 Room Air I&O- Last 24 Hours up to 6 AM 05/20/19 05:59 Intake Total 1635 ml Output Total 850 ml Balance 785 ml Laboratory Data 24H LABS Laboratory Tests 2 05/19/19 11:54: Neutrophils (%) (Auto) , Nucleated Red Blood Cells % (auto) 0.0, Neutrophils 58, Band Neutrophils 5, Lymphocytes (Manual) 21, Monocytes (Manual) 3, Eosinophils (Manual) 3, Atypical Lymphocytes 10H, Platelet Estimate NORMAL, Differential Slide Review Report, Peripheral Blood Smear Path Consult PERIPHERAL SMEAR 05/19/19 11:58: POC Glucose (Misc Panel) 84, POC Sodium (Misc Panel) 137, POC Potassium (Misc Panel) 4.3, POC Chloride (Misc Panel) 100, POC Total CO2 (Misc Panel) 27.0, POC Blood Urea Nitrogen (Misc Panel 8, POC Ionized Calcium (Misc Panel) 4.6, POC Creatinine (Misc Panel) 0.7, POC Hematocrit (Misc Panel) 44.0 05/19/19 14:02: Influenza Type A (RT-PCR) NEGATIVE, Influenza Type B (RT-PCR) NEGATIVE 05/19/19 16:06: 05/19/19 18:12: Methicillin-Resist S.aureus DNA PCR DETECTEDH 05/19/19 18:13: 05/20/19 06:43: Nucleated Red Blood Cells % (auto) 0.0, Anion Gap 6L, Glomerular Filtration Rate > 60.0, Calcium Level 8.4L, Total Bilirubin 0.3, Aspartate Amino Transf (AST/SGOT) 9, Alanine Aminotransferase (ALT/SGPT) 19, Alkaline Phosphatase 64, Total Protein 7.2, Albumin 2.6L, Albumin/Globulin Ratio 0.57L CBC/BMP Laboratory Tests 05/19/19 11:54 05/20/19 06:43 Microbiology Microbiology 05/19/19 Blood Culture, Received Pending 05/19/19 Blood Culture, Received Pending JOEY NICOLE PA-C May 20, 2019 10:02
[2019-05-20] MEDS: KETOROLAC 30 MG/ML VIAL (J1885) IV SCH ×2 (10:54→20:02)
[2019-05-20] MEDS: IPRATROPIUM 0.5MG/ALBUTEROL 2.5MG INH SOL UD 3ML (DUONEB)(J7620) NEB PRN ×2 (11:40→15:54)
[2019-05-20] MEDS: AZITHROMYCIN INJ 500 MG, VIAL MATE ADAPTER 1 EACH in D5W 250 ML IV SCH (14:47)
[2019-05-20] MEDS ORDERED: cefTRIAXone SOD 1 GM in D5W MINI-BAG PLUS 50 ML IV SCH (15:00)
[2019-05-20 16:00] VITALS: BP 110/59
[2019-05-21] MEDS: IPRATROPIUM 0.5MG/ALBUTEROL 2.5MG INH SOL UD 3ML (DUONEB)(J7620) NEB SCH ×3 (02:00→13:24)
[2019-05-21 03:00] VITALS: BP 107/69
[2019-05-21] MEDS: KETOROLAC 30 MG/ML VIAL (J1885) IV SCH ×2 (03:55→11:17)
[2019-05-21] MEDS: HEPARIN SOD (PORCINE) 5000 UNITS/ML VIAL (J1644 PER 1000UNITS) SC SCH ×2 (06:59→14:16)
[2019-05-21 07:06] LABS: HEMATOCRIT 36.5 % (36.0-47.0); HEMOGLOBIN 12.1 g/dl (12.0-15.5); MEAN CORPUSCULAR HGB CONC 33.2 g/dl (32.0-36.5); MEAN CORPUSCULAR VOLUME 90.3 fl (80.0-96.0); PLATELET COUNT, AUTOMATED 211 10^3/uL (150-450); RED BLOOD COUNT 4.04 10^6/uL (4.00-5.40); WHITE BLOOD COUNT 7.7 10^3/uL (4.0-10.0)
[2019-05-21 07:22] LABS: ATYPICAL LYMPH 8 % (0-5); EOSINOPHILS 2 % (0-3); LYMPHOCYTES 49 % (16-44); MONOCYTES 5 % (0-5); NEUTROPHILS 36 % (28-66); PLATELET ESTIMATE NORMAL (NORMAL)
[2019-05-21 07:28] LABS: BLOOD UREA NITROGEN 9 MG/DL (7-18); CALCIUM LEVEL 8.5 MG/DL (8.5-10.1); CARBON DIOXIDE LEVEL 25 MEQ/L (21-32); CHLORIDE LEVEL 109 MEQ/L (98-107); CREATININE FOR GFR 0.67 MG/DL (0.55-1.30); GLOMERULAR FILTRATION RATE > 60.0 (>60); GLUCOSE, FASTING 99 MG/DL (70-100); POTASSIUM SERUM 3.8 MEQ/L (3.5-5.1); SODIUM LEVEL 138 MEQ/L (136-145)
[2019-05-21] MEDS: CEFTAROLINE FOSAMIL 600 MG in D5W MINI-BAG PLUS 50 ML IV SCH ×2 (07:32→17:50)
[2019-05-21 07:42] VITALS: BP 114/56
[2019-05-21] MEDS: OSELTAMIVIR PHOSPHATE 75 MG CAP (TAMIFLU) PO SCH (09:14)
[2019-05-21] MEDS: DOCUSATE SODIUM 100 MG CAP PO SCH (09:14)
--- NOTE | 2019-05-21 12:22 | IPNPDOC ---
Subjective Date Seen The patient was seen on 05/21/19. Subjective Chief Complaint/HPI Pleuritic chest pain slightly improved. No significant SOB, cough or f/c Constitutional: Denies: Chills, Fever Pulmonary: Reports: Pleuritic Chest Pain; Denies: Dyspnea, Cough Cardiovascular: Denies: Chest Pain, Palpitations Gastrointestinal: Denies: Nausea, Vomiting, Abdominal Pain, Diarrhea, Constipation Objective Physical Examination General Exam: Positive: Alert, No Acute Distress Chest Exam: Positive: Diminished (decreased BS left base); Negative: Rales, Rhonchi, Wheezing Heart Exam: Positive: Rate Normal, Regular Rhythm Abdomen Exam: Positive: Normal bowel sounds, Soft; Negative: Tenderness Extremity Exam: Negative: Edema Assessment /Plan Problems (1) Pneumonia Status: Acute Problem Text: CT Angio on admission: There is a 5.3 cm mass-like density in the left lower lobe as described. There is left hilar lymph node enlargement. This could represent a consolidated left lower lobe infiltrate or a true left lung mass. I would recommend follow-up to complete resolution. If there is no resolution within a reasonable time frame, consider PET scan. Change from Toradol back to ibuprofen in anticipation for possible d/c home soon Rocehin changed to Ceftaroine due to + MRSA screen Cont Zithromax B/C negative CBCD showed atypical lymphs - peripheral smear: Hx of mediastinal B-cell lymp pina in 2014. Atypical lymphocytes are noted, most likely reactive in nature. If findings persist on repeat CBC diff in a couple weeks, in view of Hx of lymphoma, flow cytometry of peripheral blood can be performed to rule out a lymphoproliferative process. Will need f/u imaging and f/u peripheral smear as outpatient to assure this is not related to a recurrence of her Lymphoma (2) History of non-Hodgkin's lymphoma Status: Acute Problem Text: see above Plan/VTE VTE Prophylaxis Ordered?: Yes (SQ heparin) Disposition D/C home later today or tomorrow VS, I&O, 24H, Fishbone Vital Signs/I&O Vital Signs Date Time Temp Pulse Resp B/P (MAP) Pulse Ox O2 Delivery O2 Flow Rate FiO2 05/21/19 07:42 97.8 86 18 114/56 (75) 97 Room Air I&O- Last 24 Hours up to 6 AM 05/21/19 06:00 Intake Total 2005 ml Output Total 2150 ml Balance -145 ml Laboratory Data 24H LABS Laboratory Tests 2 05/21/19 06:52: Neutrophils (%) (Auto) , Nucleated Red Blood Cells % (auto) 0.0, Neutrophils 36, Lymphocytes (Manual) 49H, Monocytes (Manual) 5, Eosinophils (Manual) 2, Atypical Lymphocytes 8H, Red Blood Cell Morphology NORMAL, Platelet Estimate NORMAL, Anion Gap 4L, Glomerular Filtration Rate > 60.0, Calcium Level 8.5 CBC/BMP Laboratory Tests 05/21/19 06:52 Microbiology Microbiology 05/19/19 Blood Culture - Preliminary, Resulted No growth after 24 hours . All specim... 05/19/19 Blood Culture - Preliminary, Resulted No growth after 24 hours . All specim... JOEY NICOLE PA-C May 21, 2019 12:22
[2019-05-21] MEDS ORDERED: IBUPROFEN 600 MG TAB PO PRN (13:00)
[2019-05-21] MEDS: AZITHROMYCIN INJ 500 MG, VIAL MATE ADAPTER 1 EACH in D5W 250 ML IV SCH (14:16)
[2019-05-21 16:00] VITALS: BP 109/60
--- NOTE | 2019-05-21 18:28 | DSES ---
DATE OF ADMISSION: 05/19/2019 DATE OF DISCHARGE: 05/21/2019 DISCHARGE DIAGNOSES: 1. Left lower lobe 53 mm mass-like density by 04/29/2019 CT of the chest, clinically and radiographically more consistent with pneumonia but can not rule out underlying carcinoma. 2. History of mediastinal B-cell lymphoma in 2014. 3. Atypical lymphocytosis. Peripheral smear with 49% lymphocytes with white blood cell (WBC) at 7.78%, atypical lymphocytes with peripheral smear favoring reactive nature. 4. Asthma, mild, persistent. 5. Depression. HOSPITAL COURSE: The patient's dyspnea and left lower lobe pleuritic chest pain resolved after IV ceftriaxone, azithromycin for two days. A methicillin-resistant Staphylococcus aureus (MRSA) nasal swab was performed on admission and by day two of admission this came back positive. Therefore, the ceftriaxone was switched to ceftaroline. She has never had any known MRSA infections but she does work as a schoolteacher. Blood cultures times two showed no growth. Influenza A and B polymerase chain reaction (PCR) were negative. The patient had presented on oseltamivir started by primary care provider (PCP) because of familial exposure to influenza. On discharge, urine legionella and Streptococcus antigen were pending. The patient was discharged to home on cefdinir 300 mg by mouth twice a day times 12 days and doxycycline monohydrate 100 twice a day times 12 days for a total of 14 days of antibiotics. Prior to discharge, flow cytometry was drawn. She will followup with her PCP in seven days and planned repeat CT of the chest in 5-6 weeks to rule out any underlying lung mass behind what is presumptively a lobar pneumonia.
[2019-05-23 00:06] LABS: BODY FLUID CULTURE Not indicated. (.); LEGIONELLA ANTIGEN URINE Negative (Negative); ORGANISM ID Not indicated. (.); SPECIMEN SOURCE Urine (.); URINE STREP PNEUMONIAE ANTIGEN Negative (Negative)
== END 2019-05-21 18:40 | disposition home or self-care (01) ==
LOC: M ED 09:45 → M ED INP 09:46 → ENRESERV 15:36 → M PED 17:12
PROVIDERS: ADMIT Internal Medicine; ATTEND Family Medicine
DX: J18.9 Pneumonia, unspecified organism (principal); R91.8 Other nonspecific abnormal finding of lung field; Z85.72 Personal history of non-Hodgkin lymphomas; D72.820 Lymphocytosis (symptomatic); J45.30 Mild persistent asthma, uncomplicated; F32.9 Major depressive disorder, single episode, unspecified; R07.9 Chest pain, unspecified; Z92.21 Personal history of antineoplastic chemotherapy; Z88.0 Allergy status to penicillin; Z88.2 Allergy status to sulfonamides
CPT/HCPCS: 36415; 71046; 71275; 80047; 80048; 80053; 84145; 85025; 85027; 87040; 87449; 87502; 87641; 87899; 94640; 96361; 96365; 96366; 96372; 96375; 96376; 99284; J0456; J0696; J0712; J1644; J1885; J2270; Q9967

== ENCOUNTER → 2019-05-27 | Outpatient (REF) | payer OTHER ==
[~2019-05-27] MED LIST changes: +IBUP200T45 PO; +OSEL75CA2 PO; +PREVTAB2 PO; +QVAR80AE8 INH
[2019-05-27 11:54] LABS: BASO % 0.3 % (0.0-1.0); EOS # 0.1 10^3/uL (0.0-0.5); HEMATOCRIT 38.3 % (36.0-47.0); HEMOGLOBIN 12.9 g/dl (12.0-15.5); LYMPH # 1.8 10^3/uL (1.5-5.0); LYMPH % 19.8 % (24.0-44.0); MEAN CORPUSCULAR HEMOGLOBIN 30.2 pg (27.0-33.0); MEAN CORPUSCULAR HGB CONC 33.7 g/dl (32.0-36.5); MEAN CORPUSCULAR VOLUME 89.7 fl (80.0-96.0); MONO # 0.2 10^3/uL (0.0-0.8); MONO % 2.4 % (0.0-5.0); NEUTROPHILS % 76.3 % (36.0-66.0); PLATELET COUNT, AUTOMATED 393 10^3/uL (150-450); RED BLOOD COUNT 4.27 10^6/uL (4.00-5.40); WHITE BLOOD COUNT 9.2 10^3/uL (4.0-10.0)
[2019-05-27 12:14] LABS: BLOOD UREA NITROGEN 22 MG/DL (7-18); CALCIUM LEVEL 8.8 MG/DL (8.5-10.1); CARBON DIOXIDE LEVEL 23 MEQ/L (21-32); CHLORIDE LEVEL 106 MEQ/L (98-107); CREATININE FOR GFR 0.94 MG/DL (0.55-1.30); GLOMERULAR FILTRATION RATE > 60.0 (>60); GLUCOSE, FASTING 148 MG/DL (70-100); POTASSIUM SERUM 4.1 MEQ/L (3.5-5.1); SODIUM LEVEL 138 MEQ/L (136-145)
== END ==
LOC: M SFHCCLAY 09:04
PROVIDERS: ATTEND Nurse Practitioner Family
DX: J18.9 Pneumonia, unspecified organism (principal); C85.92 Non-Hodgkin lymphoma, unspecified, intrathoracic lymph nodes

== ENCOUNTER → 2019-06-09 | Outpatient (CLI) | payer OTHER ==
[~2019-06-09] MED LIST changes: +CEFD1CAP8 PO; +DOXY100C37 PO; +ISOVUE-370 76% 100ML VIAL (Q9967) As Ordered ONE
--- NOTE | 2019-06-09 19:43 | REP ---
Clinical: Follow up abnormal lung findings. Technique: Axial contrast enhanced images from the thoracic inlet to the upper abdomen with coronal and sagittal re-formations using 75 ml Isovue 370 intravenous contrast material. Comparison: 05/19/2019, 01/23/2018. Findings: Previously identified large left lower lobe consolidation appears to have nearly completely resolved and the current examination now demonstrates a 3.0 x 2.0 x 2.7 cm subpleural minimally enhancing mass-like area in its place (images 52 - 62). Minimal residual left hilar lymph nodes are considerably decreased when compared to prior examination. No further consolidation, nodule or mass lesion. No effusion. No pneumothorax. Tracheobronchial tree is patent. The mediastinum demonstrates normal thoracic aorta, pulmonary vasculature, and heart/pericardium. Musculoskeletal structures without focal abnormality. Impression: 1. Ovoid subpleural minimally enhancing residual rounded atelectasis versus mass in the periphery of the left lower lobe at the site of prior large consolidation. Short-term reevaluation and pulmonary consultation recommended. Electronically Signed by Srikanth Valladares MD 06/09/2019 07:35 P
== END ==
LOC: M RAD 15:29
PROVIDERS: ATTEND Internal Medicine Hematology & Oncology
DX: J18.9 Pneumonia, unspecified organism (principal); C85.92 Non-Hodgkin lymphoma, unspecified, intrathoracic lymph nodes; R91.8 Other nonspecific abnormal finding of lung field
CPT/HCPCS: 71260; Q9967

== ENCOUNTER → 2019-07-10 | Outpatient (CLI) | payer OTHER ==
[~2019-07-10] MED LIST changes: -ISOVUE-370 76% 100ML VIAL (Q9967) As Ordered ONE
--- NOTE | 2019-07-10 17:22 | REP ---
HISTORY: Followup. COMPARISON: The latest prior for comparison is 05/19/2019. The large opacity seen in the left lower lobe region has gotten markedly smaller and there is an approximately 3.5 cm sized residual. The lung mallory are otherwise clear. The heart is not enlarged. The pleural angles are sharp. The osseous structures are stable and intact. IMPRESSION: Significant improvement as described above. Electronically Signed by Fausto Garza DO 07/10/2019 05:38 P
== END ==
LOC: M WUC 13:05
PROVIDERS: ATTEND Internal Medicine Pulmonary Disease
DX: R91.8 Other nonspecific abnormal finding of lung field (principal)

== ENCOUNTER → 2019-08-07 | Outpatient (CLI) | payer OTHER ==
[~2019-08-07] MED LIST changes: +FLUT1INH2 INH; +ISOVUE-370 76% 100ML VIAL As Ordered ONE
--- NOTE | 2019-08-07 13:02 | REP ---
CT CHEST WITH IV CONTRAST: TECHNIQUE: Axial contrast-enhanced images from the thoracic inlet to the upper abdomen using 100 mL Isovue-370 intravenous contrast material with multiplanar reformations. COMPARISON: 06/09/2019 and 05/19/2019. The peripheral consolidative opacity that was previously seen in the left lower lobe continues to decrease in size. Margins are somewhat ill defined. It measures approximately 2.2 x 1.4 cm. There is some very mild adjacent patchy parenchymal opacity a little more inferiorly in the left lower lobe. Again, this likely represents resolving pneumonia/atelectasis. No new parenchymal abnormality is seen bilaterally in the lungs. No new mediastinal, hilar, or chest wall lymphadenopathy is seen with stable appearance of the mediastinum compared to the prior study. Metallic clips are seen along the left superior mediastinal margin. There is no axillary adenopathy. Thoracic aorta is normal in caliber with no aneurysm or dissection. The heart is normal in size. There is no pleural or pericardial effusion. Visualized upper abdominal structures are unremarkable. IMPRESSION: Continued decrease in size of peripheral consolidative opacity in the left lower lobe likely representing resolving pneumonia/atelectasis. Recommend followup exam in 3 months to ensure complete resolution. Electronically Signed by Marco Antonio Manzo MD 08/07/2019 01:12 P
== END ==
LOC: M RAD 10:58
PROVIDERS: ATTEND Internal Medicine Hematology & Oncology
DX: Z85.72 Personal history of non-Hodgkin lymphomas (principal); R91.8 Other nonspecific abnormal finding of lung field
CPT/HCPCS: 71260; Q9967

== ENCOUNTER → 2020-06-17 | Outpatient (REF) | payer OTHER ==
[~2020-06-17] MED LIST changes: -ISOVUE-370 76% 100ML VIAL As Ordered ONE
== END ==
LOC: M SFHCWAGY 13:23
PROVIDERS: ATTEND Obstetrics & Gynecology
DX: Z12.4 Encounter for screening for malignant neoplasm of cervix (principal)

== ENCOUNTER → 2021-06-19 | Outpatient (REF) | payer OTHER ==
[~2021-06-19] MED LIST changes: -CEFD1CAP8 PO; +CEFD300C41 PO; +DOXY-443 PO; -DOXY100C37 PO; -IBUP200T45 PO; +IBUP200T46 PO
[2021-06-19 15:48] LABS: BASO % 0.1 % (0.0-1.0); EOS # 0.1 10^3/uL (0.0-0.5); EOS % 1.6 % (0.0-3.0); HEMATOCRIT 42.1 % (36.0-47.0); LYMPH # 2.8 10^3/uL (1.5-5.0); LYMPH % 41.4 % (24.0-44.0); MEAN CORPUSCULAR HEMOGLOBIN 30.3 pg (27.0-33.0); MEAN CORPUSCULAR HGB CONC 33.3 g/dl (32.0-36.5); MEAN CORPUSCULAR VOLUME 91.1 fl (80.0-96.0); MONO # 0.4 10^3/uL (0.0-0.8); MONO % 6.1 % (2.0-8.0); NEUTROPHILS # 3.4 10^3/uL (1.5-8.5); NEUTROPHILS % 50.7 % (36.0-66.0); PLATELET COUNT, AUTOMATED 280 10^3/uL (150-450); RED BLOOD COUNT 4.62 10^6/uL (4.00-5.40); WHITE BLOOD COUNT 6.7 10^3/uL (4.0-10.0)
[2021-06-19 16:08] LABS: ALBUMIN 3.5 GM/DL (3.2-5.2); ALT/SGPT 33 U/L (12-78); AMYLASE 48 U/L (25-115); BILIRUBIN,TOTAL 0.3 MG/DL (0.2-1.0); BLOOD UREA NITROGEN 20 MG/DL (7-18); CALCIUM LEVEL 9.2 MG/DL (8.5-10.1); CARBON DIOXIDE LEVEL 26 MEQ/L (21-32); CHLORIDE LEVEL 107 MEQ/L (98-107); CREATININE FOR GFR 0.98 MG/DL (0.55-1.30); GLOMERULAR FILTRATION RATE > 60.0 (>60); GLUCOSE, FASTING 126 MG/DL (70-100); LIPASE 102 U/L (73-393); POTASSIUM SERUM 4.1 MEQ/L (3.5-5.1); SODIUM LEVEL 140 MEQ/L (136-145); TOTAL PROTEIN 7.3 GM/DL (6.4-8.2)
== END ==
LOC: M SFHCCLAY 11:51
PROVIDERS: ATTEND Family Medicine
DX: R10.13 Epigastric pain (principal); R11.0 Nausea

== ENCOUNTER → 2021-06-20 | Outpatient (REF) | payer OTHER | LOC: M SFHCWAGY 09:55 | PROVIDERS: ATTEND Obstetrics & Gynecology | DX: Z77.9 Other contact with and (suspected) exposures hazardous to health (principal); Z12.4 Encounter for screening for malignant neoplasm of cervix | CPT/HCPCS: 87624; G0123 ==

== ENCOUNTER → 2022-10-25 | Outpatient (REF) | payer OTHER | LOC: M SFHCCLAY 17:01 | PROVIDERS: ATTEND Nurse Practitioner Family | DX: J02.9 Acute pharyngitis, unspecified (principal) ==

== ENCOUNTER → 2023-10-09 | Outpatient (REF) | payer OTHER ==
[~2023-10-09] MED LIST changes: +CEFD1CAP9 PO; -CEFD300C41 PO; +DOXY-323 PO; -DOXY-443 PO; +FLUO-365 PO; -FLUO20CA22 PO
[2023-10-11 12:27] LABS: HPV APTIMA Not Detected (Not Detected)
== END ==
LOC: M PLALAB 14:06
PROVIDERS: ATTEND Obstetrics & Gynecology
DX: Z12.4 Encounter for screening for malignant neoplasm of cervix (principal)
CPT/HCPCS: 87624; G0123

== ENCOUNTER → 2025-03-03 | Outpatient (REF) | payer OTHER ==
[~2025-03-03] MED LIST changes: -DOXY-323 PO; +DOXY-441 PO
== END ==
LOC: M PLALAB 15:26
PROVIDERS: ATTEND Obstetrics & Gynecology
DX: Z12.4 Encounter for screening for malignant neoplasm of cervix (principal); Z53.9 Procedure and treatment not carried out, unspecified reason